=== PATIENT | female | born 1975 | race African-American/Black ===

== ENCOUNTER 2018-06-27 09:12 | Emergency (ER) | payer MEDICAID ==
[~2018-06-27] VITALS: Ht 167.6 cm; Wt 95.0 kg
[~2018-06-27 09:12] MED LIST: FLONAS; LORA10CA; OMEP20CA10; VIC
[2018-06-27 09:24] VITALS: BP 145/65
== END 2018-06-27 12:03 | disposition left against medical advice (07) ==
LOC: ER 09:12
DX: Z53.21 Procedure and treatment not carried out due to patient leaving prior to being seen by health care provider (principal)

== ENCOUNTER 2021-10-17 18:01 | Emergency (ER) | payer MEDICAID, OTHER ==
[~2021-10-17] VITALS: Ht 160 cm; Wt 100.0 kg
[~2021-10-17 18:01] MED LIST changes: -OMEP20CA10; +OMEP20CA14
[2021-10-17 18:24] VITALS: BP 130/91
[2021-10-17] MEDS ORDERED: ACETAMINOPHEN 325MG TABLET PO ONE (20:45)
[2021-10-17] MEDS ORDERED: IBUPROFEN 400MG TABLET PO ONE (20:45)
[2021-10-17] MEDS ORDERED: METH-653 MT (20:56)
[2021-10-17] MEDS ORDERED: IBUP-2028 MT (20:56)
[2021-10-17] MEDS ORDERED: TOPUD PO (20:56)
[2021-10-17] MEDS ORDERED: LIDO1ADH23 TP (20:56)
== END 2021-10-17 21:04 | disposition home or self-care (01) ==
LOC: ER 18:01
DX: S13.4XXA Sprain of ligaments of cervical spine, initial encounter (principal); V49.49XA Driver injured in collision with other motor vehicles in traffic accident, initial encounter; Y93.89 Activity, other specified; Y92.89 Other specified places as the place of occurrence of the external cause; Y99.8 Other external cause status; J45.909 Unspecified asthma, uncomplicated; K21.9 Gastro-esophageal reflux disease without esophagitis; Z90.710 Acquired absence of both cervix and uterus
CPT/HCPCS: 71045; 72040; 73030; 99284